=== PATIENT | female | born 1975 | race Caucasian/White ===

== ENCOUNTER 2017-01-10 18:18 | Emergency (ER) | payer SELFPAY ==
[~2017-01-10] VITALS: Ht 167.6 cm; Wt 68.0 kg
[2017-01-10] MEDS ORDERED: FAMOTIDINE 20 MG TABLET PO ONE (19:00)
[2017-01-10] MEDS ORDERED: EPINEPHrine 1 MG/ML AMPUL SQ ONE (19:00)
[2017-01-10] MEDS ORDERED: predniSONE 20 MG TABLET PO ONE (19:00)
[2017-01-10] MEDS ORDERED: diphenhydrAMINE HCL 25 MG CAPSULE PO ONE (19:00)
[2017-01-10] MEDS ORDERED: PRED-220 PO (19:05)
[2017-01-10] MEDS ORDERED: FAMO-63 PO (19:05)
--- NOTE | 2017-01-10 19:05 | PHYS DOC ---
Past History Past Medical History: Cancer Past Surgical History: Cancer Surgery Alcohol Use: Occasionally Drug Use: None Adult General Chief Complaint Chief Complaint: SKIN RASH/ABSCESS HPI HPI Patient is a 41 year old female who presents with hives. She is here visiting family from [place]. She awakened this am around 8:30 "covered in hives." She remembers "squirming around in my bed last night with slight itching.' She went all day "trying to see if it would go away". She has no drooling; no voice change; no difficulty breathing except that it feels "a little tight in my chest." No nausea or vomiting or diarrhea. No new meds. She has been eating out but nothing exotic. Review of Systems Review of Systems Constitutional: Denies fever or chills Eyes: Denies change in visual acuity, redness, or eye pain HENT: Denies nasal congestion or sore throat Respiratory: Denies cough or shortness of breath Cardiovascular: slight chest tightness GI: Denies abdominal pain, nausea, vomiting, bloody stools or diarrhea : Denies dysuria or hematuria Musculoskeletal: Denies back pain or joint pain Integument: see HPI Neurologic: Denies headache, focal weakness or sensory changes Current Medications Current Medications Current Medications Medications (Trade) Dose Ordered Sig/Nicki Start Time Stop Time Status Last Admin Dose Admin Diphenhydramine HCl (Benadryl) 25 mg 1X ONCE 01/10/17 19:00 01/10/17 19:01 Epinephrine HCl 3 mg 1X ONCE 01/10/17 19:00 01/10/17 19:01 Famotidine (Pepcid) 20 mg 1X ONCE 01/10/17 19:00 01/10/17 19:01 Prednisone (Prednisone) 60 mg 1X ONCE 01/10/17 19:00 01/10/17 19:01 Allergies Allergies Allergies Coded Allergies Type Severity Reaction Last Updated Verified No Known Drug Allergies 01/10/17 No Physical Exam Physical Exam Constitutional: Well developed, well nourished, no acute distress, non-toxic appearance. HENT: Normocephalic, atraumatic, bilateral external ears normal, oropharynx moist, no oral exudates, nose normal. No drooling; uvula normal size. Eyes: PERRLA, EOMI, conjunctiva normal, no discharge. Neck: Normal range of motion, no tenderness, supple, no stridor. Cardiovascular:Heart rate regular rhythm, no murmur Lungs & Thorax: Bilateral breath sounds clear to auscultation. No wheezing. Abdomen: Bowel sounds normal, soft, no tenderness, no masses, no pulsatile masses. Skin: Warm, dry. Hives noted throughout; more predominant on truncal area and under bra and underwear. Back: No tenderness, no CVA tenderness. Extremities: No tenderness, no cyanosis, no clubbing, ROM intact, no edema. Neurologic: Alert and oriented X 3, normal motor function, normal sensory function, no focal deficits noted. Psychologic: Affect normal, judgement normal, mood normal. Current Patient Data Vital Signs Vital Signs Date Time Temp Pulse Resp B/P (MAP) Pulse Ox O2 Delivery O2 Flow Rate FiO2 01/10/17 18:20 98.0 89 16 98 Room Air EKG EKG EKG interpreted by myself at 1830 PM with NSR, rate 76. Non specific ST changes ; no ST elevation. Normal axis. Course & Med Decision Making Course & Med Decision Making Patient with no evidence of acute airway compromise. Epi sq for diffuse urticaria; prednisone po, benadyl and pepcid po. Will need to continue with the po meds. Patient may not be able to determine etiology; especially as she is traveling. Dragon Disclaimer Dragon Disclaimer This chart was dictated in whole or in part using Voice Recognition software in a busy, high-work load, and often noisy Emergency Department environment. It may contain unintended and wholly unrecognized errors or omissions. Departure Departure: Impression: Primary Impression: Hives Disposition: 01 HOME, SELF-CARE Condition: STABLE Patient Instructions: Hives Scripts Prednisone (PREDNISONE) 10 Mg Tablet 10 MG PO UD for PREDNISONE TAPER, #39 TAB 0 Refills Take 3 tablets by mouth twice a day for 3 days, then take 2 tablets by mouth twice a day for 3 days, then take 1 tablet by mouth twice a day for 3 days, then take 1 tablet by mouth daily x 3 days, then stop. Prov: FATOUMATA STOVER MD 01/10/17 Famotidine (PEPCID) 20 Mg Tablet 20 MG PO BID for 7 Days, #14 TAB Prov: FATOUMATA STOVER MD 01/10/17 FATOUMATA STOVER MD Jan 10, 2017 19:05
--- NOTE | 2017-01-10 19:10 | EKG ---
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
[2017-01-10 19:27] VITALS: BP 135/91
== END 2017-01-10 19:32 | disposition home or self-care (01) ==
LOC: ER 18:18
DX: L50.9 Urticaria, unspecified (principal)
CPT/HCPCS: 93005; 96372; 99284; J0171; J7512; Q0163